=== PATIENT | male | born 1965 | race Caucasian/White ===

== ENCOUNTER 2019-03-13 15:40 | Emergency (ER) | payer OTHER ==
[~2019-03-13] VITALS: Ht 177.8 cm; Wt 83.9 kg
[2019-03-13 16:07] VITALS: BP 154/89
[2019-03-13] MEDS ORDERED: LIDOCAINE 1% INJ 50 ML MDV IJ ONE ×2 (16:18→16:30)
[2019-03-13] MEDS ORDERED: TDAP [DIPH/PERTUSSIS/TET] 0.5 ML VIAL IM ONE ×2 (16:30→16:46)
== END 2019-03-13 17:10 | disposition home or self-care (01) ==
LOC: ER 15:48
DX: S01.511A Laceration without foreign body of lip, initial encounter (principal); W22.8XXA Striking against or struck by other objects, initial encounter; Y93.89 Activity, other specified; Y92.89 Other specified places as the place of occurrence of the external cause; Y99.8 Other external cause status; E11.9 Type 2 diabetes mellitus without complications; I10 Essential (primary) hypertension
CPT/HCPCS: 12011; 90471; 90715; 99283; J3490